=== PATIENT | male | born 1940 | race Caucasian/White ===

== ENCOUNTER → 2021-03-01 | Outpatient (CLI) | payer MEDICARE, OTHER ==
[~2021-03-01] MED LIST: ASPIRIN EC81 MG PO; AVODART0.5 MG PO; CLARITIN 10MG T10 MG PO; CLINDAMYCIN HC300 MG PO; DOXEPIN HCL50 MG PO; ELAVIL 50 MG TA50 MG PO; FISH OIL 1,0001 EAC3 PO; FLOMAX0.4 MG PO; FOLIC ACID 1 MG1 MG PO; HYDROCODON-ACE1 EAC4 PO; HYDROXYZINE HCL25 MG PO; HYDROXYZINE HCL50 MG PO; KEPPRA500 MG PO; KLONOPIN TAB 00.5 MG PO; LEVOFLOXACIN500 MG PO; LIPITOR10 MG PO; LOPRESSOR 50 MG50 MG PO; LOVAZA1 GM PO; MELATONIN5 M2 PO; MYSOLINE TAB 5050 MG PO; NIACIN500 MG PO; NITROSTAT 0.40.4 MG SL; OMEGA 3 FISH O1 EACH PO; PLAVIX 75 MG TA75 MG PO; PRIMIDONE50 MG PO; SPIRIVA18 MCG INH; SYMBICORT 160-1 INHA INH; SYNTHROID88 MCG PO; ULTRAM50 MG PO; VASCEPA1 GM PO; VITAMIN D31000 UNI1 PO; XYZAL5 MG PO; ZETIA10 MG PO; ZOFRAN ODT 4 MG4 MG PO
[2021-03-01 12:46] LABS: RED BLOOD COUNT 4.58 M/UL (4.20-5.50)
== END ==
LOC: LAB 10:37
PROVIDERS: Internal Medicine Cardiovascular Disease
DX: I25.10 Atherosclerotic heart disease of native coronary artery without angina pectoris (principal); I49.5 Sick sinus syndrome; R00.2 Palpitations; Z45.010 Encounter for checking and testing of cardiac pacemaker pulse generator [battery]
CPT/HCPCS: 80048; 85025

== ENCOUNTER → 2021-03-02 | Outpatient (CLI) | payer MEDICARE, OTHER | LOC: RAD 12:26 | DX: I25.10 Atherosclerotic heart disease of native coronary artery without angina pectoris (principal); I49.5 Sick sinus syndrome; R00.2 Palpitations; Z45.010 Encounter for checking and testing of cardiac pacemaker pulse generator [battery] | CPT/HCPCS: 71046 ==

== ENCOUNTER → 2021-03-03 | Outpatient (CLI) | payer MEDICARE, OTHER | END | disposition home or self-care (01) | LOC: CATH 09:00 | PROC: 0JPT0PZ Removal of Cardiac Rhythm Related Device from Trunk Subcutaneous Tissue and Fascia, Open Approach (ICD-10-PCS; principal; 2021-03-03) | PROC: 0JH606Z Insertion of Pacemaker, Dual Chamber into Chest Subcutaneous Tissue and Fascia, Open Approach (ICD-10-PCS; 2021-03-03) | DX: Z45.010 Encounter for checking and testing of cardiac pacemaker pulse generator [battery] (principal); I49.5 Sick sinus syndrome; I25.10 Atherosclerotic heart disease of native coronary artery without angina pectoris; F17.210 Nicotine dependence, cigarettes, uncomplicated; E78.5 Hyperlipidemia, unspecified; I48.0 Paroxysmal atrial fibrillation; J44.9 Chronic obstructive pulmonary disease, unspecified; E78.00 Pure hypercholesterolemia, unspecified; Z79.82 Long term (current) use of aspirin; Z79.899 Other long term (current) drug therapy | CPT/HCPCS: 33213; 99152; 99153; C1785; J2250; J3010; J3370; J7040; J7050 ==

== ENCOUNTER → 2021-09-26 | Outpatient (CLI) | payer MEDICARE, OTHER ==
[~2021-09-26] MED LIST changes: +CRESTOR40 MG PO; +KEPPRA250 MG PO; -KEPPRA500 MG PO; +METOPROLOL SUCC50 MG PO; +MULTIVITAMIN
== END ==
LOC: ECHO 12:00 → NM 13:00
DX: Z01.818 Encounter for other preprocedural examination (principal); I25.10 Atherosclerotic heart disease of native coronary artery without angina pectoris; R94.39 Abnormal result of other cardiovascular function study; I70.0 Atherosclerosis of aorta; I51.7 Cardiomegaly; Z95.0 Presence of cardiac pacemaker
CPT/HCPCS: ECHO; 78452; 93017; 93306; A9502; J2785

== ENCOUNTER → 2021-11-08 | Outpatient (CLI) | payer MEDICARE, OTHER ==
[2021-11-08 12:16] LABS: HEMOGLOBIN 11.9 gm/dl (14.0-17.5); RED BLOOD COUNT 3.97 M/UL (4.20-5.50); WHITE BLOOD COUNT 6.7 K/UL (4.5-11.0)
[2021-11-08 12:32] LABS: BUN/CREATININE RATIO 10 (0-10)
== END ==
LOC: OPSV2 11:00 → EDSTATUS 11:00 → OPSV2 11:18
PROVIDERS: Orthopaedic Surgery
DX: Z01.818 Encounter for other preprocedural examination (principal); M87.9 Osteonecrosis, unspecified; J43.9 Emphysema, unspecified; R91.8 Other nonspecific abnormal finding of lung field; R94.31 Abnormal electrocardiogram [ECG] [EKG]
CPT/HCPCS: 36415; 71046; 80048; 85025; 93005

== ENCOUNTER → 2021-11-21 | Outpatient (CLI) | payer MEDICARE, OTHER ==
[~2021-11-21] MED LIST changes: +HYDROCODON-ACE1 EAC2 PO
[2021-11-21 15:02] LABS: BUN/CREATININE RATIO 15 (0-10)
== END ==
LOC: LAB 13:38
PROVIDERS: Orthopaedic Surgery
DX: Z01.812 Encounter for preprocedural laboratory examination (principal)
CPT/HCPCS: 36415; 80048; 86850; 86900; 86901

== ENCOUNTER → 2021-11-22 | Day surgery (SDC) | payer MEDICARE, OTHER ==
[~2021-11-22] VITALS: Ht 172.7 cm; Wt 59.0 kg
== END | disposition home or self-care (01) ==
LOC: OR 08:53 → EDSTATUS 13:00
PROVIDERS: Orthopaedic Surgery
PROC: 3E0T3BZ Introduction of Anesthetic Agent into Peripheral Nerves and Plexi, Percutaneous Approach (ICD-10-PCS; 2021-11-22)
PROC: 0SRB02A Replacement of Left Hip Joint with Metal on Polyethylene Synthetic Substitute, Uncemented, Open Approach (ICD-10-PCS; principal; 2021-11-22 12:15)
DX: M87.052 Idiopathic aseptic necrosis of left femur (principal); M87.051 Idiopathic aseptic necrosis of right femur; Z20.822 Contact with and (suspected) exposure to COVID-19; I49.5 Sick sinus syndrome; I25.10 Atherosclerotic heart disease of native coronary artery without angina pectoris; J34.9 Unspecified disorder of nose and nasal sinuses; K21.9 Gastro-esophageal reflux disease without esophagitis; E03.9 Hypothyroidism, unspecified; E78.5 Hyperlipidemia, unspecified; I25.2 Old myocardial infarction; Z79.02 Long term (current) use of antithrombotics/antiplatelets; Z79.51 Long term (current) use of inhaled steroids; Z79.82 Long term (current) use of aspirin; Z79.899 Other long term (current) drug therapy; Z87.891 Personal history of nicotine dependence; Z86.73 Personal history of transient ischemic attack (TIA), and cerebral infarction without residual deficits; Z95.0 Presence of cardiac pacemaker
CPT/HCPCS: 73502; 76000; 82962; 97161; 97166; C1776; J0171; J0690; J1100; J1170; J1885; J2370; J2704; J2795; J3010; J3370; J7030; J7050; J7120

== ENCOUNTER → 2021-12-07 | Outpatient (CLI) | payer MEDICARE, OTHER | LOC: KOH-I 08:16 | DX: S72.142A Displaced intertrochanteric fracture of left femur, initial encounter for closed fracture (principal); Z96.642 Presence of left artificial hip joint | CPT/HCPCS: 73700 ==

== ENCOUNTER 2022-03-22 17:14 | Emergency (ER) | payer MEDICARE, OTHER, MEDICAID | END 2022-03-22 20:44 | disposition home or self-care (01) | LOC: ER1 17:14 | DX: M54.50 Low back pain, unspecified (principal); G89.29 Other chronic pain; F17.210 Nicotine dependence, cigarettes, uncomplicated; G20 Parkinson's disease | CPT/HCPCS: 72131; 93005; 96374; 96375; 99284; J1885; J2930 ==